=== PATIENT | female | born 2000 ===

== ENCOUNTER 2022-09-24 23:05 | Emergency (ER) | payer OTHER ==
[~2022-09-24] VITALS: Ht 152.4 cm; Wt 68.0 kg
[2022-09-24 23:44] VITALS: BP 139/90; PULSE 82; RESP 16; TEMP 98; O2SAT 100
--- NOTE | 2022-09-24 23:48 | NUR ---
to lobby a/w bed ambulatory
[2022-09-25] MEDS ORDERED: LOTC TP (02:09)
[2022-09-25 02:56] VITALS: BP 139/90; PULSE 82; RESP 16; TEMP 98; O2SAT 100
== END 2022-09-25 02:56 | disposition home or self-care (01) ==
LOC: MED 23:05
DX: B35.3 Tinea pedis (principal)
CPT/HCPCS: 99281